=== PATIENT | female | born 1950 | race Two or more races ===

== ENCOUNTER 2018-01-12 07:19 | Day surgery (SDC) | payer OTHER ==
[2018-01-05 12:12] VITALS: BMI 27.7
--- NOTE | 2018-01-10 09:20 | HP ---
Admitting History and Physical - Primary Care Physician PCP: Eddi Parisi - Admission Chief Complaint: left nipple mass with bloody discharge History of Present Illness: Patient is a 67 yo female who has been followed for a left breast nipple density. On follow-up left breast US on 01/06/2017, patient was noted to have an unchanged nipple density (in size)which is now accom by bloody nipple discharge and increased vascular flow on Doppler. Cytology done on the discharge was negative for malignancy. Patient is now presenting for left major duct excision with NL. History Source: Patient Limitations to Obtaining History: No Limitations - Past Surgical History Past Surgical History: Yes: Breast Biopsy, - Advance Directives Advance Directives: Yes: Health Care Proxy - Smoking History Smoking history: Never smoked Have you smoked in the past 12 months: No - Alcohol/Substance Use Hx Alcohol Use: Yes (SOCIALLY) Home Medications - Allergies Allergies/Adverse Reactions: Allergies Allergy/AdvReac Type Severity Reaction Status Date / Time No Known Drug Allergies Allergy Verified 04/13/17 12:10 - Home Medications Home Medications: Ambulatory Orders Cholecalciferol (Vitamin D3) [Vitamin D3] 2,000 unit PO DAILY 04/13/17 Cyanocobalamin [Vitamin B12 -] 500 mcg PO DAILY 04/13/17 Multivitamins [Tab-A-Vit -] 1 tab PO DAILY 04/13/17 Family Disease History - Family Disease History Other Family History: cousin-inflammatory breast cancer in the 30s Review of Systems - Review of Systems Constitutional: reports: No Symptoms Cardiovascular: reports: No Symptoms Respiratory: reports: No Symptoms Physical Examination Constitutional: Yes: Well Nourished, Calm Breast(s): Yes: Left (Left breast nipple discharge noted on exam. Otherwise no suspicious densities or adenopathy noted bilaterally.) Problem List - Problems (1) Left breast mass Code(s): N63 - UNSPECIFIED LUMP IN BREAST * DO NOT USE * Assessment/Plan Plan: Left major duct excision with NL
[2018-01-12] MEDS ORDERED: BUPIVACAINE HCL/PF 2.5 MG/ML - 30 ML VIAL IJ ONE (10:23)
[2018-01-12] MEDS ORDERED: PROPOFOL 20 ML ONE ×2 (10:27)
[2018-01-12] MEDS ORDERED: MIDAZOLAM HCL 2 MG/2 ML SINGLE DOSE VIAL ONE ×2 (10:27→10:38)
[2018-01-12] MEDS ORDERED: ceFAZolin SODIUM 1 GM VIAL ONE (10:46)
[2018-01-12] MEDS ORDERED: ONDANSETRON 4 MG/2 ML VIAL ONE (11:00)
[2018-01-12] MEDS ORDERED: DEXAMETHASONE SOD PHOSPHATE 4 MG/1 ML VIAL ONE (11:00)
[2018-01-12] MEDS ORDERED: ONDANSETRON 4 MG/2 ML VIAL IVPUSH PRN (11:47)
[2018-01-12] MEDS ORDERED: KETOROLAC TROMETHAMINE 30 MG/1 ML VIAL IVPUSH PRN (11:47)
[2018-01-12] MEDS ORDERED: DEXTROSE 5%-0.45% SALINE 1,000 ML IV SCH (12:00)
[2018-01-12 12:37] VITALS: TEMP 97.5
[2018-01-12 13:51] VITALS: BP 149/74; PULSE 70
--- NOTE | 2018-01-12 14:36 | OP ---
DATE OF OPERATION: 01/12/2018 PREOPERATIVE DIAGNOSIS: Left breast retroareolar mass. POSTOPERATIVE DIAGNOSIS: Left breast retroareolar mass; await permanent section. PROCEDURE: Left breast major duct excision with ultrasound localization. ANESTHESIA: Propofol infusion general anesthesia. PRIMARY SURGEON: Meg Parisi MD SAVINGS TELLER: DIANA Collins COMPLICATIONS: None. Briefly, the patient is a 67-year-old, G3, P3, postmenopausal female of [place] descent who has a maternal cousin who had inflammatory breast cancer at age 37. The patient had a left breast excisional biopsy for calcifications in 2006. She was noted to have a left retroareolar density seen on ultrasound back in 2015, which remained stable. However, developed some bloody nipple discharge and had a repeat ultrasound in November 2017, continued to show this retroareolar mass. At this point, excision was recommended. She was brought in for the procedure on January 12, 2018, and underwent an ultrasound localization of the retroareolar density. She was brought to the holding area, and in the holding area, site verification was made, and informed consent was obtained. DESCRIPTION OF PROCEDURE: She was brought into the operating room, laid on the OR table in the supine position. Venodynes were placed on the lower extremities. The left breast was sterilely prepped and draped in usual fashion with the wire prepped in the field. She was given general propofol infusion anesthesia. We did use the intraoperative ultrasound. We were able to see the density just over the distal tip of the wire. Next, 1% lidocaine was given in a curvilinear fashion on the periareolar border of the left breast nipple-areolar complex. Incision was made and dissection was undertaken underneath the nipple-areolar complex and the tissues completely removed from around the tip of the wire. The duct was easily found and a papilloma was seen within the duct and this tissue was removed and sent to Pathology in formalin as left breast retroareolar duct excision. Hemostasis was achieved. A 5-0 fast-absorbing suture was then placed in a pursestring fashion underneath the left nipple to keep the nipple everted. The breast tissue was then reapproximated using 2-0 plain suture. The skin was closed using interrupted 3-0 deep dermal Vicryl suture and a running 4-0 subcuticular Biosyn suture. Mastisol and Steri-Strips were applied over the wound with a compressive dressing placed over this. The patient tolerated the procedure well, without difficulty and was awake and alert at the end of the procedure, will be recovered, and discharged home the same day once discharge criteria are met. Estimated blood loss was minimal, and all sponge and needle counts were correct at the end of the case. MEG PARISI M.D. [id number]
--- NOTE | 2018-01-17 09:59 | PATH ---
Surgical Pathology Report Patient Name: INGA GONZALES [facility]. Rec. #: [id number] /Age/Gender: 1950 (Age: 67) / F Account: [id number] Location: [facility] Taken: 01/12/2018 Received: 01/12/2018 Reported: 01/17/2018 Physicians: Eddi Parisi M.D. Specimen(s) Received LEFT RETROAREOLAR BREAST MASS Clinical History Ultrasound findings: Probably benign Retroareolar mass, likely papilloma Final Diagnosis BREAST, LEFT, RETROAREOLAR MASS, EXCISION: INTRADUCTAL PAPILLOMA. Electronically Signed Griselda Marin M.D. Gross Description Received in formalin labeled "left retroareolar breast mass," is a 1.0 x 0.7 x 0.5 cm santana-yellow, unoriented portion of fibroadipose tissue. The specimen is inked blue. Sectioning reveals predominantly santana fibrous tissue and scant adipose tissue. The specimen is serially sectioned and entirely submitted in one cassette. Time to formalin fixation: < 1 minute Total formalin fixation time: Approximately 30 hours. [facility]
== END 2018-01-12 12:30 | disposition home or self-care (01) ==
LOC: FASU 07:19
PROVIDERS: ATTEND Surgery Surgical Oncology
PROC: 0HBU0ZX Excision of Left Breast, Open Approach, Diagnostic (ICD-10-PCS; principal; 2018-01-12 10:55)
DX: D24.2 Benign neoplasm of left breast (principal); Z80.3 Family history of malignant neoplasm of breast
CPT/HCPCS: 19281; 88307-TC; 94760